=== PATIENT | male | born 1950 | race Caucasian/White ===

== ENCOUNTER → 2019-03-14 | Outpatient (CLI) | payer MEDICARE, OTHER ==
[2014-11-18 23:30] VITALS: BP 111/61
--- NOTE | 2019-03-14 11:11 | KCIC ---
EXAM: PA and Lateral Views of the Chest DATE: 03/14/2019 12:00 AM INDICATION: Melanoma COMPARISON: 01/14/2018 FINDINGS: The heart is borderline enlarged. Atherosclerotic calcifications of the tortuous aorta are seen. Mediastinal and hilar contours are stable. No lobar consolidation. Numerous small nodules bilaterally, likely also granulomas and essentially unchanged to prior radiograph 01/14/2018. No pleural effusion or pneumothorax. IMPRESSION: 1. Stable bilateral numerous small calcified granulomas. 2. No radiographic evidence for acute cardiopulmonary process. Electronically signed by: Noel Henderson MD (03/14/2019 11:08 AM) [id number]
== END | disposition home or self-care (01) ==
LOC: KCIC 08:41
PROVIDERS: ATTEND Physician Assistant
DX: I70.0 Atherosclerosis of aorta (principal); I51.7 Cardiomegaly; J84.10 Pulmonary fibrosis, unspecified; R91.8 Other nonspecific abnormal finding of lung field; Z85.820 Personal history of malignant melanoma of skin
CPT/HCPCS: 71046

== ENCOUNTER → 2019-12-16 | Outpatient (CLI) | payer MEDICARE, OTHER ==
[2014-11-18 23:30] VITALS: BP 111/61
--- NOTE | 2019-12-16 08:49 | KCIC ---
EXAM: Chest, 2 views. HISTORY: Melanoma. COMPARISON: 03/14/2019 FINDINGS: 2 views of the chest are obtained. There is no infiltrate, pleural effusion or pneumothorax. The heart is normal in size. There are numerous tiny calcified granulomas. IMPRESSION: Healed granulomatous disease. No acute thoracic finding. Electronically signed by: Melita Vásquez MD (12/16/2019 8:46 AM) [id number]
== END | disposition home or self-care (01) ==
LOC: KCIC 08:21
PROVIDERS: ATTEND Physician Assistant
DX: J84.10 Pulmonary fibrosis, unspecified (principal); Z85.820 Personal history of malignant melanoma of skin
CPT/HCPCS: 71046

== ENCOUNTER 2020-02-20 19:54 | Emergency (ER) | payer MEDICARE, OTHER ==
[~2020-02-20] VITALS: Ht 177.8 cm; Wt 77.0 kg
[2020-02-20] MEDS ORDERED: NITROGLYCERIN SUBLINGUAL 0.4 MG BOTTLE OF 25. SL STA (20:21)
[2020-02-20] MEDS ORDERED: IV NORMAL SALINE 1000ML BAG 1,000 ML IV SCH (20:21)
[2020-02-20] MEDS ORDERED: GLUCAGON,HUMAN RECOMBINANT 1 MG/ML VIAL. IV ONE (20:30)
[2020-02-20 20:31] LABS: BASO % 0 % (0-3); EOS # 0.2 x10^3/uL (0.0-0.7); EOS % 3 % (0-3); HEMATOCRIT 41.9 % (39.0-53.0); HEMOGLOBIN 14.5 g/dL (13.0-17.5); LYMPH # 3.3 x10^3/uL (1.0-4.8); LYMPH % 45 % (24-48); MEAN CORPUSCULAR HEMOGLOBIN 33 pg (25-35); MEAN CORPUSCULAR HGB CONC 35 g/dL (31-37); MEAN CORPUSCULAR VOLUME 95 fL (79-100); MONO # 0.6 x10^3/uL (0.0-1.1); MONO % 8 % (0-9); NEUT # 3.3 x10^3/uL (1.8-7.7); NEUT % 44 % (31-73); PLATELET COUNT 177 x10^3/uL (140-400); RED BLOOD COUNT 4.41 x10^6/uL (4.30-5.70); RED CELL DISTRIBUTION WIDTH 12.5 % (11.5-14.5); WHITE BLOOD COUNT 7.4 x10^3/uL (4.0-11.0)
[2020-02-20 20:39] LABS: CALCIUM 8.7 mg/dL (8.5-10.1); CREATININE 0.8 mg/dL (0.7-1.3); GFR 95.6; POTASSIUM 3.5 mmol/L (3.5-5.1)
[2020-02-20 20:45] LABS: ALBUMIN 3.9 g/dL (3.4-5.0); ALBUMIN/GLOBULIN RATIO 1.3 (1.0-1.7); TOTAL BILIRUBIN 0.5 mg/dL (0.2-1.0)
--- NOTE | 2020-02-20 20:45 | PHYS DOC ---
Past Medical History Past Medical History: GERD Past Surgical History: No Surgical History Smoking Status: Never Smoker Alcohol Use: Occasionally Drug Use: None General Adult EDM: Chief Complaint: DIFFICULTY SWALLOWING HPI: HPI: Patient is a 69 year old male who presents with complaint of suspected esophageal food bolus. Patient states that he had just sat down to eat some steak and when he put the first bite of steak in his mouth and swallowed it, he felt like it got stuck. Patient states that since that time he has not been able swallow anything and even sips of water or coming right back up. Patient does indicate that he has had similar episodes on the past and has required GI for removal of food bolus.[] Review of Systems: Review of Systems: Constitutional: Denies fever or chills. [] Respiratory: Denies cough or shortness of breath. [] Cardiovascular: Denies chest pain or edema. [] GI: Denies abdominal pain, vomiting or diarrhea. [] Integument: Denies rash. [] Neurologic: Denies headache, focal weakness or sensory changes. [] A full 10 point review of systems has been reviewed and is otherwise negative except as noted in history of present illness Heart Score: Risk Factors: Risk Factors: DM, Current or recent (<one month) smoker, HTN, HLP, family history of CAD, obesity. Risk Scores: Score 0 - 3: 2.5% MACE over next 6 weeks - Discharge Home Score 4 - 6: 20.3% MACE over next 6 weeks - Admit for Clinical Observation Score 7 - 10: 72.7% MACE over next 6 weeks - Early Invasive Strategies Current Medications: Current Medications Medications (Trade) Dose Ordered Sig/[facility] Start Time Stop Time Status Last Admin Dose Admin Glucagon (Glucagen) 1 mg 1X ONCE 02/20/20 20:30 02/20/20 20:31 DC 02/20/20 20:36 1 MG Nitroglycerin (Nitrostat) 0.4 mg 1X STAT 02/20/20 20:21 02/20/20 20:27 DC 02/20/20 20:35 0.4 MG Sodium Chloride 1,000 ml @ 1,000 mls/hr Q1H 02/20/20 20:21 02/20/20 21:20 02/20/20 20:36 1,000 MLS/HR Allergies: Allergies: Allergies Coded Allergies Type Severity Reaction Last Updated Verified Penicillins Allergy Unknown Unknown 1/28/15 No Physical Exam: PE: Constitutional: Well developed, well nourished, no acute distress, non-toxic appearance. [] HENT: Normocephalic, atraumatic, bilateral external ears normal, oropharynx [address], no oral exudates, nose normal. [] Eyes: PERRLA, EOMI, conjunctiva normal, no discharge. [] Neck: Normal range of motion, no tenderness, supple, no stridor. [] Cardiovascular: Regular rate and rhythm[] Lungs & Thorax: Bilateral breath sounds clear to auscultation [] Abdomen: Bowel sounds normal, soft, no tenderness. [] Skin: Warm, dry, no erythema, no rash. [] Extremities: No tenderness, no cyanosis, no clubbing, ROM intact, no edema. [] Neurologic: Alert and oriented X 3, no focal deficits noted. [] Current Patient Data: Labs: Laboratory Tests Test 02/20/20 20:25 White Blood Count 7.4 x10^3/uL (4.0-11.0) Red Blood Count 4.41 x10^6/uL (4.30-5.70) Hemoglobin 14.5 g/dL (13.0-17.5) Hematocrit 41.9 % (39.0-53.0) Mean Corpuscular Volume 95 fL (79-100) Mean Corpuscular Hemoglobin 33 pg (25-35) Mean Corpuscular Hemoglobin Concent 35 g/dL (31-37) Red Cell Distribution Width 12.5 % (11.5-14.5) Platelet Count 177 x10^3/uL (140-400) Neutrophils (%) (Auto) 44 % (31-73) Lymphocytes (%) (Auto) 45 % (24-48) Monocytes (%) (Auto) 8 % (0-9) Eosinophils (%) (Auto) 3 % (0-3) Basophils (%) (Auto) 0 % (0-3) Neutrophils # (Auto) 3.3 x10^3/uL (1.8-7.7) Lymphocytes # (Auto) 3.3 x10^3/uL (1.0-4.8) Monocytes # (Auto) 0.6 x10^3/uL (0.0-1.1) Eosinophils # (Auto) 0.2 x10^3/uL (0.0-0.7) Basophils # (Auto) 0.0 x10^3/uL (0.0-0.2) Laboratory Tests 02/20/20 20:25 Vital Signs: Vital Signs Date Time Temp Pulse Resp B/P (MAP) Pulse Ox O2 Delivery O2 Flow Rate FiO2 02/20/20 20:35 63 143/86 EKG: EKG: [] Radiology/Procedures: Radiology/Procedures: [] Course & Med Decision Making: Course & Med Decision Making Pertinent Labs and Imaging studies reviewed. (See chart for details) [] Dragon Disclaimer: Dragon Disclaimer: This electronic medical record was generated, in whole or in part, using a voice recognition dictation system. Departure Departure Impression: Primary Impression: Esophageal obstruction due to food impaction Disposition: HOME, SELF-CARE Condition: STABLE Referrals: NO PCP (PCP) Patient Instructions: Swallowed Foreign Body, Adult JUSTUS GARCIA Jr. DO February 20, 2020 20:45
[2020-02-20 22:27] VITALS: BP 131/75
== END 2020-02-20 21:31 | disposition home or self-care (01) ==
LOC: ER 19:54
DX: K22.2 Esophageal obstruction (principal); K21.9 Gastro-esophageal reflux disease without esophagitis; Z88.0 Allergy status to penicillin
CPT/HCPCS: 36415; 80053; 85025; 96374; 99283; J1610; J7030

== ENCOUNTER → 2020-12-22 | Outpatient (CLI) | payer MEDICARE, OTHER ==
--- NOTE | 2020-12-22 10:04 | KCIC ---
Exam Date: 12/22/2020 8:55 AM XR CHEST 2V Indication: Reason: Hx malignant melanoma. Yearly check up. / Spl. Instructions: Hx. granulomatous d isease / History: Comparison: December 16, 2019 FINDINGS/ IMPRESSION: Innumerable small calcified granulomas are again seen in the lungs bilaterally. There are increased m arkings in the right lung base, nonspecific, but possibly representing atelectasis or infection. Foll ow-up chest radiographs to resolution are recommended. The cardiac silhouette and pulmonary vasculature are within normal limits. There is no appreciable pleural effusion or pneumothorax. Degenerative changes are seen in the spine. Electronically signed by: Mohan Oliveira MD (12/22/2020 10:01 AM) [id number]
== END ==
LOC: KCIC 08:52
PROVIDERS: ATTEND Physician Assistant
DX: J98.4 Other disorders of lung (principal); Z85.820 Personal history of malignant melanoma of skin
CPT/HCPCS: 71046

== ENCOUNTER → 2021-01-13 | Outpatient (CLI) | payer MEDICARE, OTHER ==
--- NOTE | 2021-01-13 13:10 | KCIC ---
XR CHEST 2V History: Melanoma follow-up present CXR. Comparison: 12/22/2020, 12/16/2019 Technique: PA and lateral chest radiographs. Findings: The lungs are adequately and symmectrically inflated. No airspace consolidation, pleural effusion or pneumothorax. Redemonstrated are innumerable tiny calcified granulomas. The cardiomediastinal silhout te and pulmonary vasculature are within normal limits. Soft tissues and osseous structures are unrema rkable. Improved aeration from comparison with resolution of right lower lung opacities. Impression: 1. No acute cardiopulmonary process. Interval improved inspiration from comparison with resolution o f right lower lung opacities. Electronically signed by: David Gloria MD (01/13/2021 1:08 PM) [facility]
== END ==
LOC: KCIC 09:07
PROVIDERS: ATTEND Physician Assistant
DX: Z08 Encounter for follow-up examination after completed treatment for malignant neoplasm (principal); Z85.820 Personal history of malignant melanoma of skin
CPT/HCPCS: 71046

== ENCOUNTER → 2021-06-20 | Outpatient (CLI) | payer MEDICARE, OTHER ==
--- NOTE | 2021-06-20 15:46 | KCIC ---
EXAM: PA and Lateral Views of the Chest DATE: 06/20/2021 8:41 AM INDICATION: Hx. malignant melanoma of skin. COMPARISON: No Prior FINDINGS: The heart is not enlarged. Mediastinal and hilar contours are normal. No focal parenchymal airspace opacity. Numerous calcified granuloma are seen bilaterally. No pleural effusion or pneumothorax. IMPRESSION: 1. No radiographic evidence for acute cardiopulmonary process. Electronically signed by: Noel Henderson MD (06/20/2021 3:44 PM) [id number]
== END ==
LOC: KCIC 08:37
PROVIDERS: ATTEND Physician Assistant
DX: Z08 Encounter for follow-up examination after completed treatment for malignant neoplasm (principal); J84.10 Pulmonary fibrosis, unspecified; D22.5 Melanocytic nevi of trunk; D22.61 Melanocytic nevi of right upper limb, including shoulder; D22.62 Melanocytic nevi of left upper limb, including shoulder; D22.71 Melanocytic nevi of right lower limb, including hip; D22.72 Melanocytic nevi of left lower limb, including hip; L81.4 Other melanin hyperpigmentation; L82.1 Other seborrheic keratosis; D49.2 Neoplasm of unspecified behavior of bone, soft tissue, and skin; L90.5 Scar conditions and fibrosis of skin; D22.39 Melanocytic nevi of other parts of face; Z85.820 Personal history of malignant melanoma of skin
CPT/HCPCS: 71046